=== PATIENT | male | born 1950 | race Caucasian/White ===

== ENCOUNTER 2020-09-06 11:16 | Inpatient (IN) | payer OTHER, MEDICARE ==
[~2020-09-06] VITALS: Ht 180.3 cm; Wt 107.2 kg
[2020-09-06] VITALS (56 sets, daily range): BP systolic 65–166; BP diastolic 38–119
[2020-09-06 12:03] LABS: ABSOLUTE NEUTROPHILS 8.4 thou/uL (1.4-8.2); BASOPHILS 0.3 % (0.0-2.0); EOSINOPHILS 0.2 % (0.0-3.0); HEMATOCRIT 49.9 % (42.0-52.0); HEMOGLOBIN 16.4 gm/dL (14.0-18.0); LYMPHOCYTES 13.8 % (24.0-44.0); MCH 32.7 pg (26.0-34.0); MCHC 32.9 g/dL (28.0-37.0); MCV 99.2 fL (80.0-100.0); MONOCYTES 5.2 % (1.0-8.0); PLATELET COUNT 175 thou/uL (150-400); POLYS 80.5 % (36.0-66.0); RBC 5.03 mil/uL (4.50-6.00); RDW 13.6 % (10.5-14.5); WBC 10.4 thou/uL (4.0-11.0)
[2020-09-06 12:12] LABS: ANION GAP 15 mmol/L (7-16); BUN 32 mg/dL (7-18); CHLORIDE 103 mmol/L (98-107); CO2 21 mmol/L (21-32); CREATININE 1.4 mg/dL (0.7-1.3); GLUCOSE 432 mg/dL (74-106); POTASSIUM 4.4 mmol/L (3.5-5.1); SODIUM 139 mmol/L (136-145)
[2020-09-06 12:14] LABS: APTT 21.3 Seconds (24.5-32.8); INR 1.03; PROTIME 11.2 Seconds (9.3-11.4)
[2020-09-06 12:23] LABS: ALBUMIN 3.4 g/dL (3.4-5.0); AMYLASE 31 U/L (25-115); LIPASE 115 U/L (73-393); SGOT 20 U/L (15-37); SGPT 34 U/L (16-63); TOTAL BILIRUBIN 0.6 mg/dL (0.2-1.0); TOTAL PROTEIN 6.5 g/dL (6.4-8.2); TROPONIN-I <0.06 ng/mL (<0.06)
--- NOTE | 2020-09-06 12:27 | NUR ---
DR. JUNIOR HERE TO EXAMINE PATIENT.
[2020-09-06 12:45] LABS: URINE BILIRUBIN NEGATIVE (Negative); URINE BLOOD 3+ (Negative); URINE CLARITY CLEAR; URINE COLOR YELLOW; URINE GLUCOSE-RANDOM* 3+ (Negative); URINE KETONES NEGATIVE (Negative); URINE LEUKOCYTES-REFLEX NEGATIVE (Negative); URINE NITRITE-REFLEX NEGATIVE (Negative); URINE PROTEIN (DIPSTICK) NEGATIVE (Negative); URINE UROBILINOGEN 0.2 E.U./dl (0.2-1.0)
[2020-09-06 13:00] LABS: BACTERIA-REFLEX 1-9 Few /HPF (None Seen); CASTS None Seen /LPF (None Seen); CRYSTALS None Seen /LPF (None Seen); SQUAMOUS None Seen /LPF (0-3); URINE WBC-REFLEX 0-5 Rare /HPF (0-5)
--- NOTE | 2020-09-06 13:05 | NUR ---
GI LAB. RN X 2 HERE TO TAKE PATIENT TO GI LAB. PT. HAS BEEN EXAMINED BY DR. LIMA AND DR. GIRON PRIOR TO TRANSFER TO GI LAB.
--- NOTE | 2020-09-06 14:34 | EKG ---
[place] [address] [facility] [place] [address] ELECTROCARDIOGRAM REPORT Name: NEELMA MACIAS Demetris Room #: 241-P ADM IN M.R.#: [id number] Admission: 09/06/20 Attend Phys: Pia Márquez MD Discharge: Date of : 54 Report #: [id number] [facility] ED Test Date: 2020-09-06 Test Time: 11:56:03 Pat Name: NEELAM MACIAS Department: Room: [facility] Gender: M Critical Care Specialist: iliana : 1950 Requested By: Hany Perez Order Number: [id number] MD: Asaf Fitzgerald Measurements Intervals [place] Rate: 99 P: 51 MD: 171 QRS: 18 QRSD: 124 T: 54 QT: 381 QTc: 489 Interpretive Statements Sinus rhythm Occasional premature ventricular complexes Early R wave progression Baseline wander in lead(s) V2 No previous ECG available for comparison Electronically Signed On 09-06-2020 14:34:17 CDT by Asaf Fitzgerald [email or web address] <ELECTRONICALLY SIGNED> By: Asaf Fitzgerald MD, [facility] 09/06/20 1434 1156 [id number] Asaf Fitzgerlad MD, FACC /EPI
--- NOTE | 2020-09-06 14:44 | NUR ---
PT ARRIVED FROM GI AT 1430, SETTLED AND DR. LIMA AT BEDSIDE AND HE WILL BE GOING TO THE OR AGAIN FOR ANOTHER PROCEDURE
[2020-09-06 17:26] LABS: BE(vivo) -11.4 mmol/L (-2 to +3); PO2 164.3 mmHg (80.0-100.0); sO2 98.7 % (92.0-98.0)
[2020-09-06 17:27] LABS: pH 7.208 (7.360-7.450)
[2020-09-06 18:14] LABS: ABSOLUTE NEUTROPHILS 6.5 thou/uL (1.4-8.2); BASOPHILS 0.1 % (0.0-2.0); EOSINOPHILS 0.1 % (0.0-3.0); HEMATOCRIT 49.4 % (42.0-52.0); LYMPHOCYTES 6.1 % (24.0-44.0); MCH 32.4 pg (26.0-34.0); MCHC 32.3 g/dL (28.0-37.0); MCV 100.5 fL (80.0-100.0); MONOCYTES 8.2 % (1.0-8.0); PLATELET COUNT 168 thou/uL (150-400); POLYS 85.5 % (36.0-66.0); RBC 4.92 mil/uL (4.50-6.00); WBC 7.5 thou/uL (4.0-11.0)
[2020-09-06 18:24] LABS: CALCIUM 7.5 mg/dL (8.5-10.1); CREATININE 1.5 mg/dL (0.7-1.3); POTASSIUM 4.3 mmol/L (3.5-5.1)
[2020-09-06 18:27] LABS: PHOSPHORUS 4.9 mg/dL (2.6-4.7)
[2020-09-07] VITALS (53 sets, daily range): BP systolic 71–137; BP diastolic 38–119
[2020-09-07 05:15] LABS: BE(vivo) -5.5 mmol/L (-2 to +3); HCO3 19.6 mmol/L (22.0-26.0); PO2 212.3 mmHg (80.0-100.0); pH 7.341 (7.360-7.450); sO2 99.4 % (92.0-98.0)
[2020-09-07 08:11] LABS: BE(vivo) -2.5 mmol/L (-2 to +3); PCO2 37.5 mmHg (35.0-45.0); pH 7.387 (7.360-7.450); sO2 97.3 % (92.0-98.0)
--- NOTE | 2020-09-07 09:10 | NUR ---
ASSUMED CARE OF PT AT 0700 PT AWAKE AND DOING WELL, COMMUNICATING THROUGH WHITE BOARD PT EXTUBATED AT 0900 KYLE AT BEDSIDE AT 0730, WANTS TO TURN OFF PRECEDEX AND TITRATE OFF LEVO DR. GIRON AT BEDSIDE AT 0700, NO NEW ORDERS GIVEN DR. LIMA AT BEDSIDE AT 0830, NO NEW ORDERS GIVEN
[2020-09-07 11:49] LABS: HEMATOCRIT 44.3 % (42.0-52.0); HEMOGLOBIN 14.4 gm/dL (14.0-18.0); MCH 32.3 pg (26.0-34.0); MCHC 32.6 g/dL (28.0-37.0); RBC 4.47 mil/uL (4.50-6.00); RDW 13.6 % (10.5-14.5); WBC 13.2 thou/uL (4.0-11.0)
[2020-09-07 12:04] LABS: ALBUMIN 2.6 g/dL (3.4-5.0); CALCIUM 7.5 mg/dL (8.5-10.1); CREATININE 1.1 mg/dL (0.7-1.3); MAGNESIUM 2.2 mg/dL (1.8-2.4); PHOSPHORUS 3.7 mg/dL (2.6-4.7); POTASSIUM 3.6 mmol/L (3.5-5.1)
--- NOTE | 2020-09-07 14:14 | NUR ---
chart review. cm went to see pt, unable to visit, resting with eyes closed, was extubated today, on o2 2 L/nc. noted he independent prior hospital. works at [employer]. 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 will cont following as needed for dc needs. have no contact for paula listed, will check with him again for contacts if needed.
[2020-09-08] VITALS (24 sets, daily range): BP systolic 123–153; BP diastolic 57–79
--- NOTE | 2020-09-08 09:04 | NUR ---
OSTOMY CARE; AWAKE,ALERT, VERY PLEASANT, COOPERATIVE, POUCH LEAKING, NEW POUCH CHANDA 2 PIECE SYSTEM APPLIED W/ ADAPT RING APPLIED UNDER WAFER, STOMA PINK VIABLE BUDDED W/ SMALL AMT LIQ DARK BROWN STOOL NOTED, PASSING FLATUS, PERISTOMAL SKIN INTACT, VERY RECEPTIVE TO OSTOMY EDUCATION/MANAGEMENT, SUPPLIES AND INFO LEFT AT BS, WILL ENROLL PT IN SECURE START DC PROGRAM W/ SUPPLIES SENT TO HOME, WILL CONT TO FOLLOW RECOMMENDATIONS; CHANGE POUCH Q 3-5 DAYS AND PRN, EMPTY POUCH PRN ASSOCIATE PROFESSOR OF BIOLOGY AWARE
[2020-09-08 10:18] LABS: CALCIUM 7.5 mg/dL (8.5-10.1); CREATININE 0.9 mg/dL (0.7-1.3); POTASSIUM 3.7 mmol/L (3.5-5.1)
--- NOTE | 2020-09-08 15:15 | NUR ---
chart review. cm visited with pt and sister waldo at bedside. cm cont to wear face mask and shield during visit. education on hh at pr. " that is fine, i am going to stay with my sister at her house for while [address] [place] [address]. my number [phone], sister # [phone]. never had hh before so argelia dhillon sounds ok"/paula.
--- NOTE | 2020-09-08 20:12 | NUR ---
ASSUMED CARE OF PT AROUND 0700 THIS MORNING. PT WAS LYING IN BED AND WAS SLEEPING OFF AND ON. PT STATED HE WAS IN NO PAIN AND HAD NO COMPLAINTS. PT IS A/OX3, SOMETIMES CONFUSED. PT HAS HX OF UTI AND SEPSIS. SKIN IS INTACT, W/D/P, CR<3SEC. LUNGS ARE CLEAR, BS ACTIVE ALL 4 QUADS. DISTAL PULSES PRESTENT AT 2 +. ASSESSMENT OTHERWISE UNREMARKABLE. URINE IS STILL CLOUDY AND MUCUSY. CALL LIGHT AND OTHER NEEDS ARE IN REACH. HCP CALLED AND STATED THAT THE HGB AND HCT ARE CRITICALLY LOW AND TO SET THE PT UP FOR BLOOD TRANS. ASSISTED RN IN STARTING BLOOD TRANSFUSION AND MONITORING PT.
--- NOTE | 2020-09-09 02:59 | NUR ---
ASSUMED CARE AT 1900. PT IS A/O X4 AND IS UP AD HERNANDEZ. ROOM AIR. VSS. AFEBRILE. DENIES C/O PAIN OR DISCOMFORT. 24 SOL NOTED AT THE MIDLINE ABDOMEN DISTAL TO THE UMBILICUS. C/D/I. PEREZ IN PLACE AND WORKING APPROPRIATELY. COLOSTOMY IS INTACT AND DRAINING DARK BROWN WATERY STOOL. PT IS CALM, PLEASANT AND COOPERATIVE WITH CARES. CALLS OUT APPROPRIATELY. AMBULATED IN THE HALLWAY. 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 AWAITING TO SEE UROLOGIST TOMORROW. PROGRESSING TOWARDS PLAN OF CARE DC GOALS. WILL CONTINUE TO MONITOR.
[2020-09-09 08:29] VITALS: BP 147/82
[2020-09-09] MEDS ORDERED: LISINOPRIL20 MG PO (09:06)
[2020-09-09] MEDS ORDERED: ZOCOR 20 MG TAB20 M1 PO (09:07)
[2020-09-09] MEDS ORDERED: JARDIANCE25 MG PO (09:08)
[2020-09-09] MEDS ORDERED: METFORMIN HCL500 M3 PO (09:08)
[2020-09-09] MEDS ORDERED: FLOMAX0.4 MG PO (09:09)
[2020-09-09] MEDS ORDERED: TESTOSTERO200 MG/1 M IM (09:10)
[2020-09-09] MEDS ORDERED: TRULICITY1.5 MG/0.5 (09:11)
[2020-09-09] MEDS ORDERED: ASA81BEC PO (09:11)
--- NOTE | 2020-09-09 09:56 | NUR ---
Received awake on bed. Due medications given as prescribed, able to swallow med w/o difficulty. On O2 at 2lpm via nasal cannula- weaning off. On MS, not on telemetry; no complains and signs of chest pain, crushing sensation and heaviness. Independent with ADLs. On regular diet- tolerating well; no nausea, no vomiting and no abdominal pain noted. On blood sugar monitoring, taken and recorded accordingly; with sliding scale insulin ordered. With new colostomy in place- minimal output; health teaching given. With abdominal surgical dressing in place- 24 ashley with ABD and tape; no bleeding and drainage noted. With wells in place- output measured and recorded accordingly; draining well. With 1/2 NS at 100cc/hr, infusing well at L FA. Encouraged pt to ambulate. No complains and signs of pain made during assessment. Upon reviewing pt's records, no med rec done- preferred pharmacy entered, reviewed pt's home meds with him and submitted to physician for review- Dr Márquez informed during her rounds. Pt seen and examined by Dr Márquez this AM, to wean off O2, and will d/c IVF- a/w orders. To continue monitoring patient.
[2020-09-09 15:55] VITALS: BP 146/71
[2020-09-09 19:53] VITALS: BP 139/73
--- NOTE | 2020-09-10 04:47 | NUR ---
Pt. rested quietly during the night when checked on during frequent rounds. He offers no c/o pain or nausea. Midline dressing to abdomen is dry and in- tact.
[2020-09-10 08:29] VITALS: BP 146/86
[2020-09-10] MEDS ORDERED: AUGMENTIN 875-1 EACH PO (12:10)
[2020-09-10] MEDS ORDERED: MIRALAX17 G1 PO (12:24)
[2020-09-10 13:51] VITALS: BP 146/86
--- NOTE | 2020-09-10 13:57 | NUR ---
ASSUMED CARE OF PATIENT AT 0700. ASSESSMENT CHARTED. MEDICATIONS ADMINISTERED PER EMAR. VSS. PATIENT IS A&OX4 AND MAKES NEEDS KNOW. PATIENT GETS UP AD HERNANDEZ AND DENIES PAIN. ON REGULAR DIET AND TOLERATING WELL. OSTOMY INTACT W BROWN FECES (LOOSE). PATIENT USED TEACH BACK METHOD AND SHOWS COMPLETE UNDERSTANDING OF OSTOMY CARE. ABDOMINAL WOUND W 24 SOL IS C/D/I. INSTRUCTED PATIENT TO F/U FOR STAPLE REMOVAL. PATIENT PEREZ REMOVED AT 1150 AND VOIDED AT 1330. BLADDER SCANNED WITH ONLY 4ML. UROLOGY OKAY TO DISCHARGE. DR. STEINER INFORMED AND SIGNED OFF. PATIENT VOICED NO FURTHER NEEDS. PATIENT LEFT UNIT AT [address]
[2020-09-10 14:17] VITALS: BP 146/86
--- NOTE | 2020-09-10 14:40 | NUR ---
FAXED DISCHARGE ORDERS, SUMMARY AND NEGATIVE COVID RESULT (09/06/20) TO [facility]. CONFIRMED WITH GERARDO THAT PATIENT WILL TEMPORARILY RESIDE WITH HIS SISTER. HOME HEALTH SERVICES WERE GIVEN SISTER'S ADDRESS: [address] [place] [address], [place] [address] AND PHONE NUMBERS. PATIENT'S PHONE [phone]; SISTER'S PHONE [phone] [facility] P [phone]; FAX [phone]
[2020-09-11 14:31] VITALS: BP 146/86
--- NOTE | 2020-09-11 15:05 | NUR ---
WAS NOTIFIED THAT DC ORDERS ONLY HAD BATH AIDE ON THEM FAXED UPDATED DC ORDERS/SUMMARY TO [facility] HH SPOKE WITH ALONSO IN INNTAKE SHE RECEIVED DC ORDERS AND WILL ARRANGE VISITS WITH PT.
--- NOTE | 2020-09-13 12:11 | PATH ---
[facility] [address] [place] [address] PATHOLOGY RPT PROCEDURE Name: DANIEL WINN Demetris Room #: 460-P [facility] IN M.R.#: [id number] Admission: 09/06/20 Date of : 54 Discharge: 09/10/20 Report #: [id number] Path Case #: [id number] [facility] Accession Number: [id number] . 01 Material submitted: . sigmoid colon - SIGMOID COLON . 01 Clinical history: . SIGMOID VOLVULUS EXPLORATORY LAPAROTOMY SIGMOID VOLVULUS, INTRA-ABD ABSCESS, ABD PAIN . 02 Diagnosis: Large intestine, sigmoid colon, sigmoid colectomy: - Ischemic colitis, history of sigmoid volvulus. - Negative for dysplasia or malignancy. - Margins showing reactive changes. 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 02 Addendum: . This addendum is issued subsequent to examining multiple recuts for the margins. One of the margins shows ischemic changes while the other shows viable mucosa. . This case was communicated to Dr. Jacob Light in the afternoon of 09/12/2020. . (IUV:mml; 09/12/2020) QLM/09/12/2020 Addendum Electronically Signed by Angi Guallpa MD, Pathologist . 02 Electronically signed: . Angi Guallpa MD, Pathologist NPI- [id number] . 01 Gross description: . The specimen is received in formalin, labeled "Daniel Winn, sigmoid colon ". Received is an unoriented segment of colon measuring 58.7 cm in length and ranges in diameter from 3.5 to 15.4 cm. Both margins are stapled closed. The attached pericolic measures up to 3.2 cm in thickness. There is a large amount of attached epiploic fat. The serosal surface is dusky reyes-brown to reyes-black in appearance. The specimen is opened along the antimesenteric line to reveal reyes-brown to black mucosa with a minute amount of folding identified. The lumen of the colon is impacted with fecal material. No distinct nodules or lesions are noted grossly. Sectioning through the attached mesenteric fat reveals no [address] [address] PATHOLOGY RPT PROCEDURE Name: DANIEL WINN Room #: 460-P [facility] IN M.R.#: [id number] Admission: 09/06/20 Date of : 54 Discharge: 09/10/20 Report #: [id number] Path Case #: [id number] readily identifiable lymph nodes. The specimen is submitted representatively as follows: . A1-A2 both margins A3-A5 premium representative cross-sections of specimen. (CAA; 09/08/2020) QAC/QAC 09/08/2020 1733 Local . 02 Pathologist provided ICD-10: K55.9 . 02 CPT . 880306 Specimen Comment: A courtesy copy of this report has been sent to [phone] Specimen Comment: [phone] Specimen Comment: Report sent to ,DR STEINER / DR JENSEN Specimen Comment: A duplicate report has been generated due to demographic updates. Performed at: [address], [place] [id number] MD Hemant Santoyo MD Phone: [phone] Performed at: [address] [id number] MD Angi Guallpa MD Phone: [phone]
== END 2020-09-10 14:19 | disposition home health service (06) | DRG 853 ==
LOC: ER 11:16 → EROBS 12:42 → TBACV 13:13 → ICU 13:13 → 4W 09-08 16:58
PROVIDERS: Emergency Medicine; Nurse Practitioner; Pediatrics; Surgery; ADMIT Hospitalist; ATTEND Hospitalist
PROC: 0BH17EZ Insertion of Endotracheal Airway into Trachea, Via Natural or Artificial Opening (ICD-10-PCS; principal; 2020-09-06)
PROC: 5A1935Z Respiratory Ventilation, Less than 24 Consecutive Hours (ICD-10-PCS; principal; 2020-09-06)
PROC: 0DJD8ZZ Inspection of Lower Intestinal Tract, Via Natural or Artificial Opening Endoscopic (ICD-10-PCS; principal; 2020-09-06)
PROC: 0D1N0Z4 Bypass Sigmoid Colon to Cutaneous, Open Approach (ICD-10-PCS; principal; 2020-09-06)
PROC: 0DBN0ZZ Excision of Sigmoid Colon, Open Approach (ICD-10-PCS; principal; 2020-09-06)
DX: A41.9 Sepsis, unspecified organism (principal); K65.1 Peritoneal abscess; K56.2 Volvulus; J96.00 Acute respiratory failure, unspecified whether with hypoxia or hypercapnia; N17.9 Acute kidney failure, unspecified; K59.39 Other megacolon; E87.0 Hyperosmolality and hypernatremia; K55.9 Vascular disorder of intestine, unspecified; R57.9 Shock, unspecified; E11.9 Type 2 diabetes mellitus without complications; R33.9 Retention of urine, unspecified; E78.5 Hyperlipidemia, unspecified; K63.89 Other specified diseases of intestine; Z60.2 Problems related to living alone; Z20.822 Contact with and (suspected) exposure to COVID-19
CPT/HCPCS: 10045; 10078; 10203; 50093; 50101; 50386; 51391; 51412; 51708; 56525; 56527; 56529; 57092; 57103; 58585; 62110; 62900